=== PATIENT | female | born 1960 | race Two or more races ===

== ENCOUNTER 2016-09-30 18:15 | Emergency (ER) | payer OTHER ==
[2016-09-30 18:55] LABS: ABSOLUTE NEUTROPHIL COUNT 7.4 K/mm3 (1.8-7.7); BASO % 0.4 % (0.2-1.0); EOS # 0.2 (0.0-0.5); EOS % 1.8 % (0.9-2.9); HEMATOCRIT 37.9 % (37.0-47.0); HEMOGLOBIN 12.6 gm/l (12.0-16.0); IMM NEUT% 0.4 % (0-1); LYMPH # 2.8 (1.0-4.8); LYMPH % 25.5 % (15-45); MEAN CELL VOLUME 87.1 fl (81.0-99.0); MEAN CORPUSCULAR HGB CONC 33.2 g/dl (33.0-37.0); MEAN PLATELET VOLUME 10.6 fl (7.4-10.4); MONO # 0.6 (0.0-0.8); MONO % 5.3 % (4-12); NEUT % 66.6 % (43-75); PLATELET COUNT 321 K/mm3 (130-400); RED CELL DISTRIBUTION WIDTH 12.9 % (11.5-14.5)
[2016-09-30 19:02] LABS: ALB/GLOB RATIO 1.2 (>1.0); ALBUMIN 4.4 gm/dL (3.5-5.7); CALCIUM 9.4 mg/dL (8.6-10.3)
--- NOTE | 2016-09-30 19:08 | RAD ---
CHEST - 2 VIEWS COMPARISON: Chest 2 views, 07/09/2016 HISTORY: Bilateral hand numbness. FINDINGS: Views: Frontal and lateral chest Lungs: Normal Heart and vessels: Normal Trachea and bronchi: Normal Mediastinum and khalif: Normal Costophrenic sulci: Normal Chest wall and bones: Normal. Upper abdomen: Normal. IMPRESSION: Negative 2 view chest.
[2016-09-30 19:52] LABS: SPECIFIC GRAVITY 1.005 (1.001-1.030); URINE BILIRUBIN NEGATIVE (NEGATIVE); URINE BLOOD NEGATIVE (NEGATIVE); URINE GLUCOSE (UA) NEGATIVE (NEGATIVE); URINE LEUKOCYTE ESTERASE NEGATIVE (NEGATIVE); URINE NITRITE NEGATIVE (NEGATIVE); URINE PROTEIN NEGATIVE (NEGATIVE); URINE UROBILINOGEN NORMAL (0-1 mg/dl)
[2016-09-30 19:53] LABS: URINE APPEARANCE CLEAR; URINE COLOR LIGHT YELLOW
--- NOTE | 2016-09-30 20:22 | CT ---
HEAD W/O CON COMPARISON: Head CT, 04/25/1952 HISTORY: Bilateral hand numbness TECHNIQUE: Using a [employer] [address] scanner, images were obtained through the head. An automated dose reduction technique was used to minimize patient radiation dose. DOSE INFORMATION: CTDIvol (mGy): 51.70 DLP(mGycm): 887.30 FINDINGS: Mass: None Intracranial Hemorrhage: None Acute Infarction: None Cerebral hemispheres: Normal Basal ganglia: Normal Thalami: Normal Brainstem: Normal Cerebellum: Normal Ventricles: Normal Basilar cisterns: Normal Corpus callosum: Normal Pituitary fossa: Normal Middle ears and mastoid air cells: Normal Orbits and sinuses: Normal Skull and scalp: Normal Dural sinuses and vessels: Normal IMPRESSION: Normal study. The report was sent to the emergency department electronic medical record system 09/30/2016 at 20:24
== END 2016-09-30 21:14 | disposition home or self-care (01) ==
LOC: ED 18:15
DX: R20.2 Paresthesia of skin (principal); E78.5 Hyperlipidemia, unspecified; E78.00 Pure hypercholesterolemia, unspecified; E11.9 Type 2 diabetes mellitus without complications; Z79.84 Long term (current) use of oral hypoglycemic drugs; Z86.73 Personal history of transient ischemic attack (TIA), and cerebral infarction without residual deficits